=== PATIENT | male | born 1965 | race Caucasian/White ===

== ENCOUNTER 2023-12-13 06:05 | Inpatient (IN) | payer OTHER ==
[~2023-12-13] VITALS: Ht 167.6 cm; Wt 91.7 kg
[2023-12-13] VITALS (38 sets, daily range): BP systolic 88–154; PULSE 72–93; RESP 13–23; TEMP 97.5–99.1; O2SAT 95–100
[2023-12-13] MEDS: ETOMIDATE 20 MG/ 10 ML VIAL (AMIDATE) IVP ONE (07:25)
[2023-12-13] MEDS: SUCCINYLCHOLINE CHLORIDE 20 MG/ML(QUELICIN) IVP ONE (07:26)
[2023-12-13] MEDS ORDERED: NALOXONE HCL 2 MG/2 ML SYR ONE (07:29)
[2023-12-13] MEDS: NALOXONE HCL 2 MG/2 ML SYR IVP ONE (07:30)
[2023-12-13 07:50] LABS: BILIRUBIN,URINE NEGATIVE (NEGATIVE); BLOOD, URINE NEGATIVE (NEGATIVE); CLARITY/URINE SL CLOUDY (CLEAR); COLOR,URINE YELLOW (YELLOW); GLUCOSE,URINE NEGATIVE (NEGATIVE); KETONES,URINE NEGATIVE (NEGATIVE); LEUKOCYTE ESTERASE ,URINE TRACE (NEGATIVE); NITRITE, URINE NEGATIVE (NEGATIVE); PROTEIN URINE 1+ (NEGATIVE); UROBILINOGEN,URINE 0.2 (0.2-1.0)
[2023-12-13 07:52] LABS: BASOPHILS # (AUTO) 0.1 K/uL (0.0-0.2); EOSINOPHILS # (AUTO) 0.4 K/uL (0.0-0.4); MONOCYTES # (AUTO) 0.7 K/uL (0.0-1.0); PLATELET COUNT (AUTO) 234 K/uL (130-430); WHITE BLOOD COUNT (AUTO) 14.3 K/uL (4.8-10.8)
[2023-12-13 07:54] LABS: BASOPHILS % (AUTO) 0.4 % (0.0-2.0); EOSINOPHILS % (AUTO) 3.1 % (0.0-4.0); HEMATOCRIT 48.2 % (36-54); HEMOGLOBIN 15.5 g/dL (14.0-18.0); LYMPHOCYTES # (AUTO) 2.6 K/uL (1.0-5.5); LYMPHOCYTES % (AUTO) 18.1 % (20.5-51.5); MEAN CORPUSCULAR HEMOGLOBIN 29 pg (27-31); MEAN CORPUSCULAR HGB CONC 32 % (32-36); MEAN CORPUSCULAR VOLUME 92 fL (79.0-98.0); MONOCYTES % (AUTO) 4.6 % (1.7-9.3); NEUTROPHILS # (AUTO) 10.6 K/uL (1.8-7.7); NEUTROPHILS % (AUTO) 73.8 % (40.0-70.0); RED BLOOD CELL COUNT(AUTO) 5.27 MIL/uL (4.2-6.2); RED CELL DISTRIBUTION WIDTH 14.9 % (9.0-15.0)
[2023-12-13 07:56] LABS: INR 0.9 (0.80-1.20); PROTHROMBIN TIME 9.9 SECS (9.5-12.5)
[2023-12-13] MEDS ORDERED: ETOMIDATE 20 MG/ 10 ML VIAL (AMIDATE) ONE (08:00)
[2023-12-13] MEDS ORDERED: SUCCINYLCHOLINE CHLORIDE 20 MG/ML(QUELICIN) ONE (08:00)
[2023-12-13 08:09] LABS: BACTERIA,URINE MANY /HPF (None Seen); HYALINE CASTS, URINE 0-2 /LPF (None Seen); RBC,URINE 0-3 /HPF (0-3)
[2023-12-13 08:14] LABS: BARBITURATE, URINE NEGATIVE (NEG <=200); BENZODIAZEPINE, URINE NEGATIVE (NEG <=150); CANNABINOID, URINE POSITIVE (NEG <=50); COCAINE, URINE POSITIVE (NEG <=150); METHAMPHETAMINES SCREEN,URINE POSITIVE (NEG <=500); OPIATE, URINE NEGATIVE (NEG <=100); PHENCYCLIDINE SCREEN,URINE NEGATIVE (NEG <=25); URINE AMPHETAMINE POSITIVE (NEG <=500); URINE METHADONE NEGATIVE (NEG <=200)
[2023-12-13 08:15] LABS: UR TRICYCLIC ANTIDEPRESSANTS NEGATIVE (NEG <=300); URINE OXYCODONE SCREEN NEGATIVE (NEG <=100)
[2023-12-13] MEDS: fentaNYL CITRATE/PF 100 MCG/2 ML AMP IVP ONE (08:15)
[2023-12-13 08:23] LABS: ALANINE AMINOTRANSFERASE 45 U/L (12-78); ANION GAP 13 (5-15); ASPARTATE AMINOTRANSFERASE 53 U/L (10-37); BILIRUBIN,DIRECT 0.1 mg/dL (0.0-0.3); CALCIUM 8.7 mg/dL (8.4-11.0); CARBON DIOXIDE 26 mmol/L (23-29); CHLORIDE 103 mmol/L (98-107); CREATINE KINASE, TOTAL 107 U/L (39-308); CREATININE 1.35 mg/dL (0.55-1.30); GFR AFRICAN AMERICAN 70 mL/min (>90); GLUCOSE 224 mg/dL (74-106); POTASSIUM 3.7 mmol/L (3.5-5.1); SALICYLATE 4 mg/dL (3-30); SODIUM SERUM 142 mmol/L (136-145); TOTAL BILIRUBIN 0.5 mg/dL (0.0-1.0); TOTAL PROTEIN, SERUM 7.8 g/dL (6.4-8.3); UREA NITROGEN, BLOOD 16 mg/dL (8-21)
[2023-12-13 08:24] LABS: GFR NON AFRICAN-AMERICAN 58 mL/min (>90)
[2023-12-13 08:27] LABS: ACETAMINOPHEN < 1 ug/mL (1-30); ALCOHOL, BLOOD < 3 mg/dL (<10)
[2023-12-13] MEDS ORDERED: MORPHINE 2 MG/ML INJ. SYRINGE IVP PRN (08:45)
[2023-12-13] MEDS: PROPOFOL DRIP 100 ML IV ONE (08:54)
[2023-12-13 09:19] LABS: BLOOD GAS PH 7.209 (7.350-7.450)
[2023-12-13 09:20] LABS: ABG O2 SAT% ESTIMATE 97.6 % (94.0-100.0); BLOOD GAS BASE EXCESS 16.2 mmol/L (-3.0-3.0); BLOOD GAS HCO3 21.1 mmol/L (21.0-27.0); BLOOD GAS PO2 150.2 mmHg (75.0-100.0)
[2023-12-13 09:36] LABS: ACETONE, SERUM NEGATIVE (NEGATIVE)
[2023-12-13] MEDS ORDERED: NOREPINEPHRINE BITARTRATE 4 MG in D5W 246 ML IV PRN ×3 (09:45→11:45)
[2023-12-13] MEDS: NACL 0.9% 2,000 ML IV ONE (09:49)
[2023-12-13] MEDS: NS 500 ML IV ONE (09:49)
[2023-12-13] MEDS: PIPERACILLIN/TAZO 4.5GM/DEX-IS 100 ML IV SCH ×2 (10:30→20:09)
[2023-12-13] MEDS: NACL 0.9% 1,000 ML IV SCH (10:40)
[2023-12-13] MEDS ORDERED: PIPERACILLIN/TAZOBACTAM 4.5 GM/VIAL (ZOSYN) IV ONE (11:29)
[2023-12-13] MEDS ORDERED: NOREPINEPHRINE 4 MG/4 ML VIAL IV ONE (11:37)
[2023-12-13] MEDS: VANCOMYCIN HCL 1.25 GM/NS 250 ML IV ONE (12:37)
[2023-12-13] MEDS ORDERED: NS IV PRN (15:30)
[2023-12-13] MEDS ORDERED: NALOXONE HCL IV PRN (15:30)
[2023-12-13] MEDS ORDERED: NOREPINEPHRINE BITARTRATE 4 MG in NS 246 ML IV PRN (16:15)
[2023-12-13] MEDS ORDERED: INSULIN LISPRO SLIDING SCALE 100 UNITS/ML, 3 ML VIAL (humaLOG) SUBCUT PRN (18:45)
[2023-12-13] MEDS: PROPOFOL DRIP 100 ML IV PRN (18:51)
[2023-12-13] MEDS: NS IV SCH (20:07)
[2023-12-13] MEDS: NALOXONE HCL IV SCH (20:07)
[2023-12-13] MEDS: LORazepam 2 MG/ML VIAL IVP PRN (22:36)
[2023-12-14] VITALS (17 sets, daily range): BP systolic 133–156; PULSE 77–112; RESP 14–22; TEMP 95.2–98.2; O2SAT 92–100
[2023-12-14] MEDS: hydrALAZINE HCL 20 MG/ML VIAL IVP PRN (06:02)
[2023-12-14 07:17] LABS: BASOPHILS % (AUTO) 0.3 % (0.0-2.0); EOSINOPHILS % (AUTO) 0.4 % (0.0-4.0); HEMATOCRIT 39.8 % (36-54); HEMOGLOBIN 13.1 g/dL (14.0-18.0); LYMPHOCYTES # (AUTO) 0.9 K/uL (1.0-5.5); LYMPHOCYTES % (AUTO) 7.8 % (20.5-51.5); MEAN CORPUSCULAR HEMOGLOBIN 30 pg (27-31); MEAN CORPUSCULAR HGB CONC 33 % (32-36); MEAN CORPUSCULAR VOLUME 90 fL (79.0-98.0); MONOCYTES % (AUTO) 8.4 % (1.7-9.3); NEUTROPHILS # (AUTO) 10.1 K/uL (1.8-7.7); NEUTROPHILS % (AUTO) 83.1 % (40.0-70.0); PLATELET COUNT (AUTO) 151 K/uL (130-430); RED BLOOD CELL COUNT(AUTO) 4.41 MIL/uL (4.2-6.2); RED CELL DISTRIBUTION WIDTH 14.9 % (9.0-15.0); WHITE BLOOD COUNT (AUTO) 12.2 K/uL (4.8-10.8)
[2023-12-14 07:26] LABS: CALCIUM 8.2 mg/dL (8.4-11.0); CREATININE 0.89 mg/dL (0.55-1.30); PHOSPHORUS 3.4 mg/dL (2.7-4.5); POTASSIUM 3.9 mmol/L (3.5-5.1); TOTAL BILIRUBIN 1.2 mg/dL (0.0-1.0); TOTAL PROTEIN, SERUM 6.3 g/dL (6.4-8.3)
[2023-12-14] MEDS: PANTOPRAZOLE SODIUM 40 MG TAB PO SCH (09:30)
[2023-12-14] MEDS: ASPIRIN 81 MG TAB.CHEW PO SCH (09:30)
[2023-12-14] MEDS: ENOXAPARIN SODIUM 40 MG/0.4 ML SYRINGE SUBCUT SCH (09:31)
[2023-12-14] MEDS: chlordiazePOXIDE HCL 25 MG CAPSULE PO PRN (10:01)
[2023-12-14] MEDS: NACL 0.9% 1,000 ML IV SCH (10:56)
[2023-12-14] MEDS: FUROSEMIDE 20 MG/2 ML VIAL IVP ONE (12:13)
[2023-12-14] MEDS: PIPERACILLIN/TAZO 4.5 GM in NS 100 ML IV ONE (12:14)
[2023-12-15] VITALS (7 sets, daily range): BP systolic 136–168; PULSE 80–100; RESP 16–20; TEMP 97.8–99.2; O2SAT 93–98
[2023-12-15] MEDS ORDERED: PIPERACILLIN/TAZO 4.5 GM in NS 100 ML IV ONE (10:15)
[2023-12-15] MEDS: D5/0.45 NS 1,000 ML IV SCH (10:30)
[2023-12-15 10:59] LABS: BASOPHILS % (AUTO) 0.5 % (0.0-2.0); EOSINOPHILS # (AUTO) 0.1 K/uL (0.0-0.4); EOSINOPHILS % (AUTO) 0.7 % (0.0-4.0); HEMATOCRIT 43.1 % (36-54); HEMOGLOBIN 14.2 g/dL (14.0-18.0); LYMPHOCYTES # (AUTO) 1.1 K/uL (1.0-5.5); MEAN CORPUSCULAR HEMOGLOBIN 30 pg (27-31); MEAN CORPUSCULAR HGB CONC 33 % (32-36); MEAN CORPUSCULAR VOLUME 90 fL (79.0-98.0); MONOCYTES # (AUTO) 0.7 K/uL (0.0-1.0); MONOCYTES % (AUTO) 7.6 % (1.7-9.3); NEUTROPHILS # (AUTO) 7.4 K/uL (1.8-7.7); NEUTROPHILS % (AUTO) 79.2 % (40.0-70.0); PLATELET COUNT (AUTO) 156 K/uL (130-430); RED BLOOD CELL COUNT(AUTO) 4.81 MIL/uL (4.2-6.2); RED CELL DISTRIBUTION WIDTH 14.6 % (9.0-15.0); WHITE BLOOD COUNT (AUTO) 9.3 K/uL (4.8-10.8)
[2023-12-15 11:14] LABS: ALBUMIN 3.1 g/dL (3.4-4.8); CREATININE 0.64 mg/dL (0.55-1.30); POTASSIUM 3.7 mmol/L (3.5-5.1); TOTAL BILIRUBIN 1.3 mg/dL (0.0-1.0); TOTAL PROTEIN, SERUM 7.4 g/dL (6.4-8.3)
[2023-12-15] MEDS: AZITHROMYCIN 500 MG in NS 250 ML IV SCH (11:53)
[2023-12-15] MEDS: cefTRIAXone 1 GM in D5W 50 ML IV SCH (13:12)
[2023-12-15] MEDS: amLODIPine BESYLATE 10 MG TABLET PO ONE (15:28)
[2023-12-16] VITALS (7 sets, daily range): BP systolic 137–166; PULSE 83–98; RESP 17–18; TEMP 97.9–98.8; O2SAT 94–98
[2023-12-16 08:38] LABS: BASOPHILS # (AUTO) 0.1 K/uL (0.0-0.2); BASOPHILS % (AUTO) 0.9 % (0.0-2.0); EOSINOPHILS # (AUTO) 0.2 K/uL (0.0-0.4); EOSINOPHILS % (AUTO) 1.8 % (0.0-4.0); HEMATOCRIT 42.5 % (36-54); LYMPHOCYTES # (AUTO) 1.1 K/uL (1.0-5.5); LYMPHOCYTES % (AUTO) 10.8 % (20.5-51.5); MEAN CORPUSCULAR HEMOGLOBIN 29 pg (27-31); MEAN CORPUSCULAR HGB CONC 33 % (32-36); MEAN CORPUSCULAR VOLUME 90 fL (79.0-98.0); MONOCYTES # (AUTO) 0.9 K/uL (0.0-1.0); MONOCYTES % (AUTO) 8.6 % (1.7-9.3); NEUTROPHILS # (AUTO) 7.9 K/uL (1.8-7.7); NEUTROPHILS % (AUTO) 77.9 % (40.0-70.0); PLATELET COUNT (AUTO) 158 K/uL (130-430); RED BLOOD CELL COUNT(AUTO) 4.74 MIL/uL (4.2-6.2); RED CELL DISTRIBUTION WIDTH 14.4 % (9.0-15.0); WHITE BLOOD COUNT (AUTO) 10.1 K/uL (4.8-10.8)
[2023-12-16 09:03] LABS: CREATININE 0.7 mg/dL (0.55-1.30)
[2023-12-16] MEDS: amLODIPine BESYLATE 10 MG TABLET PO SCH (09:14)
[2023-12-16 11:35] LABS: ALBUMIN 2.8 g/dL (3.4-4.8); CALCIUM 8.8 mg/dL (8.4-11.0); POTASSIUM 3.4 mmol/L (3.5-5.1); TOTAL BILIRUBIN 0.8 mg/dL (0.0-1.0); TOTAL PROTEIN, SERUM 6.9 g/dL (6.4-8.3)
[2023-12-16] MEDS: LOSARTAN POTASSIUM 50 MG TABLET (COZAAR) PO ONE (12:05)
[2023-12-16] MEDS: POTASSIUM CHLORIDE 20 MEQ/PKT PACKET PO ONE (13:26)
[2023-12-16] MEDS ORDERED: COLC0.6C3 PO (17:18)
[2023-12-16] MEDS ORDERED: MELO-89 PO (17:18)
[2023-12-16] MEDS ORDERED: MELOXICAM 7.5 MG TABLET PO PRN (17:30)
[2023-12-16] MEDS: COLCHICINE 0.6 MG TABLET PO PRN (17:35)
[2023-12-17] MEDS ORDERED: LOSARTAN POTASSIUM 50 MG TABLET (COZAAR) PO SCH (09:00)
== END 2023-12-16 22:11 | DRG 871 ==
LOC: SED 06:05 → SIC 08:39 → STU 12-14 19:49
PROVIDERS: ADMIT Student in an Organized Health Care Education/Training Program; ATTEND Student in an Organized Health Care Education/Training Program
PROC: 02HV33Z Insertion of Infusion Device into Superior Vena Cava, Percutaneous Approach (ICD-10-PCS; principal; 2023-12-13)
PROC: B548ZZA Ultrasonography of Superior Vena Cava, Guidance (ICD-10-PCS; 2023-12-13)
PROC: 4A00X4Z Measurement of Central Nervous Electrical Activity, External Approach (ICD-10-PCS; 2023-12-13)
PROC: 5A1935Z Respiratory Ventilation, Less than 24 Consecutive Hours (ICD-10-PCS; 2023-12-13)
PROC: 0BH17EZ Insertion of Endotracheal Airway into Trachea, Via Natural or Artificial Opening (ICD-10-PCS; 2023-12-13)
DX: A41.9 Sepsis, unspecified organism (principal); G92.8 Other toxic encephalopathy; J96.01 Acute respiratory failure with hypoxia; J96.02 Acute respiratory failure with hypercapnia; N17.0 Acute kidney failure with tubular necrosis; J69.0 Pneumonitis due to inhalation of food and vomit; E87.20 Acidosis, unspecified; N39.0 Urinary tract infection, site not specified; Z20.822 Contact with and (suspected) exposure to COVID-19; T40.2X1A Poisoning by other opioids, accidental (unintentional), initial encounter; I10 Essential (primary) hypertension; Y92.89 Other specified places as the place of occurrence of the external cause
CPT/HCPCS: 36415; 36600; 70450-TC; 71045; 74018; 80048; 80053; 80076; 80307; 81000; 81001; 81015; 82009; 82140; 82550; 82803; 82948; 83605; 83735; 84100; 84302; 84484; 85025; 85610; 85730; 87040; 87070; 87081; 87086; 87186; 87205; 92610-GN; 93005; 94002; 94003; 94070; 94640; 94760; 95816; 99291; G0378; G0480; G0481; G0482; J0330; J0360; J0456; J0696; J1650; J1940; J2060; J2310; J2543; J2704; J3370; J3490; J7050; J7060